=== PATIENT | female | born 2000 | race Caucasian/White ===

== ENCOUNTER 2019-03-22 22:44 | Emergency (ER) | payer MEDICAID ==
[~2019-03-22] VITALS: Ht 167.6 cm; Wt 83.7 kg
[2019-03-22 22:52] VITALS: Ht 167.6 cm; Wt 83.7 kg
[2019-03-23 02:07] VITALS: BP 130/87
== END 2019-03-23 02:07 | disposition home or self-care (01) ==
LOC: ED 22:44
DX: R10.13 Epigastric pain (principal); R10.33 Periumbilical pain; Z90.89 Acquired absence of other organs